=== PATIENT | female | born 1940 | race Caucasian/White ===

== ENCOUNTER 2019-12-27 08:00 | Outpatient (CLI) | payer MEDICARE, SELFPAY ==
--- NOTE | ~2019-12-27 | MM_ITS ---
EXAMINATION: MM screening minh BI w ashley HISTORY: Screening TECHNIQUE: Craniocaudal and mediolateral oblique 3-D tomosynthesis images were obtained and synthetic 2-D images were generated. CAD analysis was submitted and interpreted. COMPARISON: No prior mammogram is available for comparison at this institution. BREAST PARENCHYMAL COMPOSITION: There are scattered areas of fibroglandular density. FINDINGS: There is no evidence of suspicious mass, calcification, or architectural distortion to sugg est malignancy in either breast. There has been no suspicious interval change. IMPRESSION: 1. No mammographic evidence of malignancy. 2. Recommend routine screening mammography in one year. BI-RADS Category 1: Negative Reviewed, dictated and finalized at location A.
--- NOTE | ~2019-12-27 | DEXA_ITS ---
Bone Density Report Name: Ana Hoyos Age: 79 Sex: Female Ethnicity: White Date of : 1940 Indication: postmenopausal; height loss; cancer; hysterectomy; Referring Provider: MISHA, MIRNA Study: Bone densitometry was performed. Exam Date: December 27, 2019 Accession number: [id number] Bone Density: Region BMD T-score Z-score Classification AP Spine (L2, L3, L4) 0.903 -1.6 1.0 Osteopenia Femoral Neck (Left) 0.666 -1.6 0.5 Osteopenia Total Hip (Left) 0.771 -1.4 0.5 Osteopenia Total Hip Bilateral Avg 0.777 -1.4 0.6 Osteopenia Femoral Neck (Right) 0.655 -1.7 0.4 Osteopenia Total Hip (Right) 0.781 -1.3 0.6 Osteopenia World Health Organization criteria for BMD impression classify patients as: Normal (T-score at or above -1.0), Osteopenia (T-score between -1.0 and -2.5), or Osteoporosis (T-score at or below -2.5). 10-year Fracture Risk(1): Major Osteoporotic Fracture 13% Hip Fracture 3.0% Reported Risk Factors: [place] (), Neck BMD=0.655, BMI=30.2 (1) FRAX(R) Version 3.08. Fracture probability calculated for an untreated patient. Fracture probability may be lower if the patient has received treatment. Clinical Information Provided by Patient: Has the following medical conditions: Cancer, Hysterectomy Patient maximum height was 64 Menopause Age: 47 No regular weight bearing exercise Drinks caffeinated beverages Onset of menses at age 15 Number of children 4 Impression: The patient has low bone mass, based on the Right Femoral Neck T-score. The patient has an estimated ten-year risk of hip fracture of 3% and an estimated ten-year risk of major fracture of 13%, based on the WHO FRAX algorithm. Discussion: BONE DENSITY IS LOW AT ONE OR MORE SKELETAL SITES. THE PATIENT'S BMD AND CLINICAL RISK FACTORS CONTRIBUTE TO THIS PATIENT'S INCREASED RISK OF FRACTURE. This patient's lowest T-score is low at one or more skeletal sites. It meets the World Health Organization's (WHO) criteria for ?low bone mass? (T-score between -1.0 and -2.5). The patient's 10-year risk of hip fracture as calculated by FRAX exceeds the threshold where pharmacological therapy is recommended by the National Osteoporosis Foundation (NOF). However, all treatment decisions require clinical judgment and consideration of individual patient factors, including patient preferences, comorbidities, previous drug use, risk factors not captured in the FRAX model (e.g., frailty, falls, vitamin D deficiency, increased bone turnover, interval significant decline in bone density) and possible under or overestimation of fracture risk by FRAX. The patient should follow a healthful lifestyle (good nutrition with adequate calcium and vitamin D, and appropriate weight-bearing exercise). Follow-Up: Consider a repeat BMD and Vertebral Fractu
== END 2019-12-27 08:01 | disposition home or self-care (01) ==
LOC: ANHIMG 08:10
PROVIDERS: PCP Physician Assistant; Visit Provider Physician Assistant
DX: Z12.31 Encounter for screening mammogram for malignant neoplasm of breast (principal); Z78.0 Asymptomatic menopausal state; M85.89 Other specified disorders of bone density and structure, multiple sites
CPT/HCPCS: 77063; 77067; 77080

== ENCOUNTER 2023-02-20 00:27 | Emergency (ER) | payer MEDICARE, SELFPAY ==
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
[2023-02-20 00:38] VITALS: BP 198/85; PULSE 72; RESP 16; TEMP 36.4; O2SAT 100
[2023-02-20 01:09] VITALS: PULSE 77
[2023-02-20 01:10] VITALS: BP 187/91; PULSE 74; RESP 14; TEMP 36.8; O2SAT 100
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
--- NOTE | 2023-02-20 01:31 | PC.NURSE ---
spoke with steven at [facility], report number: [id number]
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
[2023-02-20] MEDS: traMADol HCL (*CRX) 50 MG TABLET PO (01:54)
--- NOTE | 2023-02-20 02:01 | PC.NURSE ---
patient went to urinate and missed specimen cup
[2023-02-20 02:08] LABS: Basophils Absolute Auto 0.1 K/mm3 (0.0-0.1); Basophils Percent Auto 1.2 % (0.2-1.2); Eosinophils Absolute Auto 0.2 K/mm3 (0-0.3); Eosinophils Percent Auto 1.8 % (0-4.4); Hematocrit 42.6 % (37.0-47.0); Hemoglobin 13.8 g/dL (12.0-15.0); Immature Granulocyte Absolute 0.02 K/mm3 (0.00-0.031); Immature Granulocyte Percent A 0.2 % (0-0.5); Lymphocytes Absolute Auto 1.82 K/mm3 (0.9-3.2); Lymphocytes Percent Auto 21.6 % (18.3-44.2); Mean Corpuscular HGB Conc 32.4 g/dl (32-36); Mean Corpuscular Hemoglobin 31.4 pg (26-34); Mean Corpuscular Volume 96.8 fl (80-100); Mean Platelet Volume 9.7 fl (7.4-10.4); Monocytes Absolute Auto 0.7 K/mm3 (0.1-0.6); Monocytes Percent Auto 7.8 % (2.6-8.5); Neutrophils Absolute Auto 5.7 K/mm3 (1.3-6.7); Neutrophils Percent Auto 67.4 % (45.5-73.1); Platelet Count Result 279 k/mm3 (150-375); Red Cell Distribution Width 13.4 % (11.5-14.5); White Blood Count 8.4 K/mm3 (4.5-10.0)
[2023-02-20 02:18] LABS: Alanine Aminotransferase 29 U/L (6-35); Albumin Level 4.4 g/dL (3.5-5.1); Alkaline Phosphatase 108 U/L (38-126); Anion Gap 7 mmol/L (8-16); Aspartate Amino Transferase 34 U/L (14-36); Bilirubin,Total 0.4 mg/dL (0.2-1.3); Blood Urea Nitrogen 17 mg/dL (7-17); Calcium 9.5 mg/dL (8.4-10.2); Carbon Dioxide 29 mmol/L (22-30); Chloride 101 mmol/L (98-107); Estimated CRCL calculation 46 ml/min; Estimated Glomerular Filt Rate > 60; Glucose 107 mg/dL (65-110); Sodium 137 mmol/L (137-145)
[2023-02-20 02:58] VITALS: BP 146/63; PULSE 86; RESP 16; O2SAT 99
[2023-02-20 04:23] LABS: Appearance Urine Clear (Clear); Bilirubin Urine Negative (Negative); Blood Urine Negative (Negative); Color Urine Yellow (Yellow); Glucose Urine UA Negative (Negative); Ketones Urine Negative (Negative); Leukocyte Esterase Ur Negative LEU/UL (Negative); Nitrate Urine Negative (Negative); Protein Urine Negative (Negative); Specific Grav Ur 1.032 (1.001-1.035); Urobilinogen Urine 0.2 mg/dL (<2.0)
[2023-02-20 04:25] LABS: Add Urine Microscopic? NO
[2023-02-20] MEDS: HYDROcodone/acetaminophen (*CRX) 5-325 MG TABLET 1 TAB PO (04:38)
[2023-02-20 04:43] VITALS: BP 131/107; PULSE 88; RESP 21; TEMP 36.6; O2SAT 95
== END 2023-02-20 04:44 | disposition home or self-care (01) ==
PROVIDERS: Emergency Provider Emergency Medicine; PCP Physician Assistant
DX: S20.219A Contusion of unspecified front wall of thorax, initial encounter (principal); S39.91XA Unspecified injury of abdomen, initial encounter; W51.XXXA Accidental striking against or bumped into by another person, initial encounter
CPT/HCPCS: 36415; 71260; 74177; 80053; 81003; 85025; 99284; A9270; Q9967

== ENCOUNTER 2023-05-20 15:12 | Outpatient (CLI) | payer MEDICARE, SELFPAY ==
--- NOTE | ~2023-05-20 | MM_ITS ---
EXAMINATION: MM screening minh BI w ashley HISTORY: Screening TECHNIQUE: Craniocaudal and mediolateral oblique 3-D tomosynthesis images were obtained and synthetic 2-D images were generated. CAD analysis was submitted and interpreted. COMPARISON: 12/27/2019 BREAST PARENCHYMAL COMPOSITION: Not dense: There are scattered areas of fibroglandular density. FINDINGS: There is a new spiculated mass in the upper outer quadrant of the left breast posteriorly. This is seen on MLO view only. There is no mammographic evidence for malignancy in the right breast. IMPRESSION: 1. New spiculated mass upper outer quadrant of the left breast. 2. Additional mammographic views and possible breast ultrasound are recommended. BI-RADS Category 0: Incomplete: Needs additional imaging evaluation. Reviewed, dictated and finalized at location A. HING DESIGNER IMPRESSION: 1. New spiculated mass upper outer quadrant of the left breast. 2. Additional mammographic views and possible breast ultrasound are recommended . BI-RADS Category 0: Incomplete: Needs additional imaging evaluation.
== END 2023-05-20 15:13 | disposition home or self-care (01) ==
PROVIDERS: PCP Physician Assistant; Visit Provider Physician Assistant
DX: Z12.31 Encounter for screening mammogram for malignant neoplasm of breast (principal); R92.8 Other abnormal and inconclusive findings on diagnostic imaging of breast
CPT/HCPCS: 77063; 77067

== ENCOUNTER 2023-07-01 11:33 | Outpatient (CLI) | payer MEDICARE, SELFPAY ==
--- NOTE | ~2023-07-01 | MMUS_ITS ---
EXAMINATION: MM diagnostic minh LT w ashley, US breast LT limited HISTORY: New spiculated mass reported in upper outer quadrant left breast on May 20, 2023 screen ing mammogram TECHNIQUE: Additional 3-D tomosynthesis images of the left breast were performed and synthetic 2-D im ages were generated. CAD analysis was submitted and interpreted. High resolution upper outer quadrant left breast ultrasound was performed. COMPARISON: May 20, 2023 bilateral screening mammogram FINDINGS: MAMMOGRAPHIC FINDINGS: There is an approximately 9.8 x 13.5 mm spiculated mass in the very posterior upper outer left breast , very suspicious for malignancy. ULTRASOUND: 2:00 12 cm from nipple: There is an irregular incompletely circumscribed hypoechoic antiparallel appr oximately 8 x 11.5 mm mass with prominent internal vascularity and posterior shadowing, highly sugges tive of malignancy. IMPRESSION: 1. Approximately 11.5 mm spiculated highly vascular solid mass at 2:00 12 cm from nipple, highly sugg estive of malignancy 2. Ultrasound-guided biopsy is recommended BI-RADS category 5, highly suggestive of malignancy. Dr. Hutton telephoned the report and ultrasound guided biopsy recommendation for 2:00 spiculated mass o n July 01, 2023 at 1315 hours to Jan Ordonez Reviewed, dictated and finalized at location A. IMPRESSION: 1. Approximately 11.5 mm spiculated highly vascular solid mass at 2:00 12 cm fr om nipple, highly suggestive of malignancy 2. Ultrasound-guided biopsy is recommended BI-RADS category 5, highly suggestive of malignancy. Dr. Hutton telephoned the report and ultrasound guided biopsy recommendation for 2:00 spiculated mass on July 01, 2023 at 1315 hours to Jan Ordonez
== END 2023-07-01 11:34 | disposition home or self-care (01) ==
PROVIDERS: PCP Physician Assistant; Visit Provider Physician Assistant
DX: R92.8 Other abnormal and inconclusive findings on diagnostic imaging of breast (principal)
CPT/HCPCS: 76642; 77061; 77065; G0279